=== PATIENT | male | born 1965 | race Caucasian/White ===

== ENCOUNTER 2023-11-22 08:38 | Outpatient (AMB) | payer MEDICARE, SELFPAY ==
--- NOTE | 2023-11-22 08:46 | MHC.OFFVIS ---
Vital Signs 11/22/23 08:49 Height 6 ft 3 in Weight 251 lb BMI 31.4 BP 136/80 Blood Pressure Location Rt brachial Position Sitting Respiration 16 Pulse 101 H Pulse Source Pulse Oximeter Pulse Oximetry (%) 97 Oxygen Delivery Method Room Air Intake Visit Reasons: ENP-Tremors Intake Note: Pt presents to the office for new pt consultation for tremors x 10 years , gradually worsening. Lever Miller Required: No Allergies No Known Allergies Allergy (Verified 11/22/23 08:48) Medication List - Last Reconciled 11/22/23 by Alma Olivera MD bupropion HCl XL 300 mg PO QAM divalproex 500 mg PO BID doxepin 100 mg PO BID fluoxetine 40 mg PO DAILY lurasidone 120 mg PO DAILY meclizine 25 mg PO DAILY PRN omeprazole 20 mg PO DAILY prazosin 5 mg PO BEDTIME rosuvastatin 10 mg PO DAILY topiramate 200 mg PO BID zolpidem 10 mg PO BEDTIME PRN HPI Comments Details: 58y/o Right male comes for evaluation of tremors of jose UE. He is accompanied by his son and . His hand tremors are longstanding atleast 15 years and now he has tremors in his legs and hands as well.15 years ago it was intermittent action mild tremors in his hands. In the past 2 years his hand tremors have worsened. He has trouble with fine motor co [place], holding anything, is difficult. His writing is difficult, drinking from a cup, eating with a spoon is difficult.The tremors worsens towards the end of the day , worse with stress and being fatigued. He has depression- past year it has worsened. He sees .His topiramate was decreased and started on latuda. He has been on zyprexa, lithium in the past. He has had ECT and magnetic therapy did not work. No family h/o tremors. No change in voice. No h/o significant head injury He has vertigo about 3 months - it is episodic , dizziness associated with change in head position. He is doing vestibular therapy now. He has chronic sleep issues.He had a recent in lab sleep study- 2 months ago - no evidence of sleep apnea. he was diagnosed with JUANCARLOS 12 years ago but could not use CPAP. [facility] Medical History (Updated 11/22/23 @ 10:07 by Alma Olivera MD) Insomnia Coarse tremors Drug-induced tremor Tremor Elevated blood pressure reading Morbid obesity Fatigue Edema Major depressive disorder Surgical History H/O adenoidectomy Hx of tonsillectomy H/O discectomy Social History Household Members: Spouse Housing: House Alcohol intake: never Patient Tobacco Use Status: Former Tobacco user Years Smoked: 4-5 Physical Exam Vital Signs: Last Vital Signs Pulse 101 H 11/22/23 08:49 Resp 16 11/22/23 08:49 BP 136/80 11/22/23 08:49 Pulse Ox 97 11/22/23 08:49 Oxygen Delivery Method Room Air 11/22/23 08:49 BMI result Body Mass Index 31.4 Const General: cooperative, healthy appearing and no acute distress Nutritional Appearance: obese Orientation/consciousness: patient oriented x3 Eyes Pupils: Equal, round and reactive pupils present Neuro Other: -mildly decreased facial expression and blink Jose UE postural and action tremors, low amplitude 8-12 hz Head tremors decreased range of motion in neck No tongue tremors No perioral movements Mild dsyprosody in voice General: patient oriented x3, gait normal, tone normal, moves all extremities and no focal motor deficits Cranial nerves: Yes Facial sensation intact/muscles of mastication intact, Yes Equal, round and reactive pupils present, Yes Bilaterally intact EOM present, Yes Nystagmus not present, Yes Normal facial strength present, Yes Midline tongue present, Yes Symmetric palate elevation present and Yes Ability to bilaterally elevate shoulders present Cognition (Neuro): normal cognition Gait exam (Neuro): Normal gait present Motor exam (neuro): 5/5 motor strength present throughout and Normal motor muscle tone present throughout Deep tendon reflexes (DTR's): Right triceps reflex intensity grade: 1+, Left triceps reflex intensity grade: 1+, Rt Biceps (C5, C6): 1+, Left biceps reflex intensity grade: 1+, Right brachioradialis reflex intensity grade: 1+, Left brachioradialis reflex intensity grade: 1+, Right patellar reflex intensity grade: 1+ and Left patellar reflex intensity grade: 1+ Coordination: [id number] test normal Assessment & Plan Assessment & Plan (1) Coarse tremors: Comment: multifactorial - poorly controlled mood, medication related Code(s): G25.2 - Other specified forms of tremor Category: Medical (2) Insomnia: Code(s): G47.00 - Insomnia, unspecified Category: Medical Plan No evidence of Parkinsons or tardive dyskinesia on todays exam I will trial him on gabapentin 300mg qhs for tremors and insomnia will review his sleep study results OT for hand strengthening Discussed sleep hygiene in detail Orders: Orders OT Evaluation and Treatment Today G25.2 - Other specified forms of tremor MR head/brain wo con Today G25.2 - Other specified forms of tremor Medications: New gabapentin 300 mg PO BEDTIME 30 caps 6RF Coding Level of Care Code New Pt Level 4 (59714) Diagnoses Coarse tremors G25.2 Insomnia G47.00
[2023-11-22 08:49] VITALS: BP 136/80; PULSE 101; RESP 16; O2SAT 97; BMI 31.4
== END 2023-11-22 09:45 | disposition home or self-care (01) ==
PROVIDERS: PCP Physician Assistant Medical; Visit Provider Psychiatry & Neurology Neurology
DX: G25.2 Other specified forms of tremor (principal); G47.00 Insomnia, unspecified
CPT/HCPCS: 99204

== ENCOUNTER → 2023-11-22 08:38 | Outpatient (BNVA) | payer MEDICARE, SELFPAY | PROVIDERS: PCP Physician Assistant Medical; Visit Provider Psychiatry & Neurology Neurology | DX: G25.2 Other specified forms of tremor (principal); G47.00 Insomnia, unspecified | CPT/HCPCS: 99202 ==

== ENCOUNTER → 2023-12-18 14:17 | Outpatient (BNV) | payer MEDICARE, SELFPAY | PROVIDERS: PCP Physician Assistant Medical; Visit Provider Radiology Diagnostic Radiology | DX: G25.2 Other specified forms of tremor (principal) | CPT/HCPCS: 70553 ==

== ENCOUNTER 2023-12-18 14:18 | Outpatient (REF) | payer MEDICARE, SELFPAY ==
--- NOTE | ~2023-12-18 | MR_ITS ---
EXAMINATION: MR BRAIN WITHOUT CONTRAST CLINICAL INFORMATION: Tremors. Unspecified. COMPARISON: None available. TECHNIQUE: MRI of the brain was obtained using routine sequences without contrast. FINDINGS: Submitted for interpretation on 01/20/2024. No restricted diffusion. No acute intracranial hemorrhage, mass effect, midline shift, hydrocephalus or herniation. Thomas-white matter differentiation is normal. Posterior cranial fossa contents demonstrated an extra-axial mixed isointense T1 and hypointense/hyperintense T2 FLAIR signal abnormality centered in the left cerebellopontine angle cisterns/porus acusticus and likely extending into the internal auditory canal. Flow-void signal within the main cerebral vessels is normal. Sellar/suprasellar region is normal. Craniocervical junction is intact and normal. MR/MR head/brain wo con IMPRESSION: Concerning vestibular schwannoma versus meningioma, left cerebellopontine angle cistern/porus acusticus/internal auditory canal. Recommend IV contrast enhanced MRI brain and IAC protocol. Electronically signed by: Andreas Leigh MD 01/20/2024 08:55 AM EDT
== END 2023-12-18 14:19 | disposition home or self-care (01) ==
LOC: HO.MRI 14:18
PROVIDERS: PCP Physician Assistant Medical; Visit Provider Psychiatry & Neurology Neurology
DX: G25.2 Other specified forms of tremor (principal)
CPT/HCPCS: 70551

== ENCOUNTER 2024-01-24 14:54 | Outpatient (REF) | payer MEDICARE, SELFPAY ==
--- NOTE | ~2024-01-24 | MR_ITS ---
EXAMINATION: MR BRAIN WITHOUT AND WITH CONTRAST CLINICAL INFORMATION: Dizziness and giddiness COMPARISON: None available. TECHNIQUE: Multiplanar, multisequence MRI of the brain was obtained before and after the intravenous administration of 10 mL Gadavist. Dedicated the lumbar IAC pulse series were also obtained. FINDINGS: Ill-defined signal abnormality centered in the left cerebellopontine angle cistern without definitive evidence of associated enhancement. The inner ear structures including the cochlea, vestibules, and semicircular canals exhibit preserved CSF signal intensity with no pathologic enhancement. The vestibular aqueducts are not enlarged. Cranial nerves VII and VIII complexes are normal in morphology. No acute intracranial hemorrhage or infarct. No abnormal intracranial enhancement. No edema, midline shift or hydrocephalus. No acute extra-axial fluid collections. The osseous structures are unremarkable. Hyperostosis frontalis interna. The pituitary gland, pineal gland and remaining midline structures are unremarkable. No orbital pathology. The paranasal sinuses and mastoid air cells are clear. MR/MR head/brain wo/w con IMPRESSION: Redemonstration of ill-defined signal abnormality centered in the left cerebellopontine angle cistern without definitive evidence of enhancement. This may represent a bony structure/asymmetric hypertrophy of the left temporal bone. Signal pattern does not definitively suggest vestibular schwannoma or meningioma. Recommend further evaluation with dedicated CT temporal bone. Electronically signed by: Jace Barrera MD 01/24/2024 05:57 PM KAVON
[2024-01-24] MEDS: gadobutroL 10 ML VIAL IVPUSH (15:40)
== END 2024-01-24 14:55 | disposition home or self-care (01) ==
LOC: HO.MRI 14:54
PROVIDERS: PCP Physician Assistant Medical; Visit Provider Nurse Practitioner Family
DX: R42 Dizziness and giddiness (principal); R90.89 Other abnormal findings on diagnostic imaging of central nervous system
CPT/HCPCS: 70553; A9585

== ENCOUNTER 2024-10-22 13:19 | Outpatient (AMB) | payer MEDICARE, SELFPAY ==
--- NOTE | 2024-10-22 13:24 | A.OFFVIS_ITS ---
Vital Signs 10/22/24 13:26 10/22/24 14:18 Height 6 ft 3 in Weight 348 lb BMI 43.5 BP 150/80 H 138/72 Blood Pressure Location Lt brachial Lt brachial Position Sitting Pulse 90 Pulse Source Pulse Oximeter Pulse Oximetry (%) 98 Oxygen Delivery Method Room Air Intake Visit Reasons: MRI results Intake Note: Patient presents follow up Tremor/insomnia medication. MRI in chart. Patient states Tremors have been better(lowered some medications and seemed to help). Insomina has been about the same. MRI neck done through PCP(will request report) Accompanied by: Spouse Allergies No Known Allergies Allergy (Verified 10/22/24 13:28) HPI Comments Details: 59 y/o r. handed male comes for evaluation of tremors of maranda UE. His is with him and helps with history. MRI Jan 2024 reviewed with patient. PSG in lab sleep study 2 months ago with no evidence of JUANCARLOS. Tremors improved since stopping depakote about 4 months ago a [facility] He stopped taking Zyprexa and discontinued lithium over 30 years ago. He has mild bilateral upper extremity tremors. Now tremors are mild with intentional action and intermittent. He has trouble with fine motor coordination, holding anything is difficult. His handwriting is shaky, drinking from a cup, eating with a spoon is difficult.The tremors worsens towards the end of the day especially with stress and being fatigued. He has depression, denies SI, though improved with Ketamine therapy with Dr. Lee Nelson, and , [facility]. No history of vertigo now. RLS, will shake his legs all day long. His topiramate was decreased and started on latuda, yet he doesn't notice much of a difference. He has chronic sleep issues, goes to bed at 10pm and falls asleep at midnight and wakes up at 3am with zero bathroom breaks. He was diagnosed with JUANCARLOS 12 years ago but could not use CPAP. He naps through out the day 30min, and has parsomnia, flailing and thrashing behaviors. He has had ECT and magnetic therapy did not work, with little improvement. No family h/o tremors. No change in voice. No h/o significant head injury. [facility] Medical History Insomnia Coarse tremors Drug-induced tremor Tremor Elevated blood pressure reading Morbid obesity Fatigue Edema Major depressive disorder Surgical History H/O adenoidectomy Hx of tonsillectomy H/O discectomy Social History Household Members: Spouse Housing: House Alcohol intake: never Patient Tobacco Use Status: Former Tobacco user Years Smoked: 4-5 Physical Exam Vital Signs: Last Vital Signs Pulse 90 10/22/24 13:26 BP 138/72 10/22/24 14:18 Pulse Ox 98 10/22/24 13:26 Oxygen Delivery Method Room Air 10/22/24 13:26 BMI result Body Mass Index 43.5 Const General: cooperative, healthy appearing and no acute distress Nutritional Appearance: obese Orientation/consciousness: patient oriented x3 Neuro Other: -mildly decreased facial expression and blink Maranda UE postural and action tremors, low amplitude 8-12 hz Head tremors decreased range of motion in neck No tongue tremors No perioral movements Mild dsyprosody in voice General: patient oriented x3, gait normal, tone normal, moves all extremities and no focal motor deficits Cranial nerves: Yes Facial sensation intact/muscles of mastication intact, Yes Bilaterally intact EOM present, Yes Nystagmus not present, Yes Normal facial strength present, Yes Midline tongue present, Yes Symmetric palate elevation present and Yes Ability to bilaterally elevate shoulders present Cognition (Neuro): normal cognition Gait exam (Neuro): Normal gait present Motor exam (neuro): 5/5 motor strength present throughout and Normal motor muscle tone present throughout Results Reviewed Results Reviewed: Jan 2024 MRI MR/MR head/brain wo/w con IMPRESSION: Redemonstration of ill-defined signal abnormality centered in the left cerebellopontine angle cistern without definitive evidence of enhancement. This may represent a bony structure/asymmetric hypertrophy of the left temporal bone. Signal pattern does not definitively suggest vestibular schwannoma or meningioma. Recommend further evaluation with dedicated CT temporal bone. 11/2023 MRI MR/MR head/brain wo con IMPRESSION: Concerning vestibular schwannoma versus meningioma, left cerebellopontine angle cistern/porus acusticus/internal auditory canal. Recommend IV contrast enhanced MRI brain and IAC protocol. Assessment & Plan Assessment & Plan (1) Insomnia: Comment: declines a bzra today Code(s): G47.00 - Insomnia, unspecified Category: Medical Qualifiers: Insomnia type: primary Qualified Code(s): F51.01 - Primary insomnia (2) Coarse tremors: Comment: multifactorial - poorly controlled mood, medication related Code(s): G25.2 - Other specified forms of tremor Category: Medical (3) Abnormal finding on MRI of brain: Comment: schwannoma or meningioma ? Radiologist receommends temporal ct of mandibular jaw. Code(s): R90.89 - Other abnormal findings on diagnostic imaging of central nervous system Category: Medical Plan Insomnia continue topiramate 200mg po daily, continue gabapentin 300mg po daily. Sleep dentistry for mandibular oral device. No evidence of Parkinsons or tardive dyskinesia on todays exam Continue Gabapentin 300mg qhs for tremors and insomnia will review his sleep study results OT for hand strengthening SDiscussed sleep hygiene in detail Orders: Orders CT head/brain wo IV con Today G25.2 - Other specified forms of tremor, R90.89 - Other abnormal findings on diagnostic imaging of central nervous system Referrals Dentistry Referral G47.00 - Insomnia, unspecified Patient Instructions: ct temporal - sleep dentistry Coding Level of Care Code Est Pt Level 4 (99884) Diagnoses Primary insomnia F51.01 Insomnia type: primary Coarse tremors G25.2 Abnormal finding on MRI of brain R90.89 Time Spent (min) 30
[2024-10-22 13:26] VITALS: BP 150/80; PULSE 90; O2SAT 98; BMI 43.5
--- OUTSIDE RECORDS SUMMARY | 2024-10-22 13:35 | XMS_ITS | Clinical Summary ---
Author Organization [employer] Address [address] [place] [address] [address] [place] [address] Care Team Providers Care Decorating Supervisor Name Role Phone Unavailable Primary Care Provider Unavailabl e Allergies No known active allergies Medications traZODone (Desyrel) 100 MG tablet 3 Active divalproex (Depakote ER) 500 MG 24 hr tablet divalproex ER 500 mg tablet,extended release 24 hr TAKE 2 TABLETS BY MOUTH AT BEDTIME Active buPROPion XL (Wellbutrin XL) 300 MG 24 hr tablet 3 Active FLUoxetine (PROzac) 40 MG capsule 3 Active lurasidone (Latuda) 120 MG tablet Latuda 120 mg tablet TAKE 1 TABLET BY MOUTH DAILY WITH FOOD Active prazosin (Minipress) 5 MG capsule prazosin 5 mg capsule Active zolpidem CR (Ambien CR) 12.5 MG ER tablet zolpidem ER 12.5 mg tablet,extended release,multiph ase Active topiramate (Topamax) 200 MG tablet topiramate 200 mg tablet Active doxepin (SINEquan) 100 MG capsule doxepin 100 mg capsule Active rosuvastatin (Crestor) 10 MG tablet Take 10 mg by mouth at bedtime. 4 Active gabapentin (Neurontin) 300 MG capsule 4 Active meclizine (Antivert) 12.5 MG tablet 4 Active Social History Tobacco Use Types Packs/Day Years Used Date Smoking Tobacco: Former Cigarettes Smokeless Tobacco: Never Tobacco Cessation:Counseling Given: Not Answered Sex and Gender Information Value Date Recorded Sex Assigned at Male 06/30/2022 11:11 AM EDT Legal Sex Male 2:54 PM EDT Gender Identity Male 06/30/2022 11:11 AM EDT Sexual Orientation Choose not to disclose 2022 11:11 AM EDT Last Filed Vital Signs Vital Sign Reading Time Taken Comments Blood Pressure 130/78 12/06/2023 9:10 AM EDT Pulse 72 12/06/2023 9:10 AM EDT Temperature - - Respiratory Rate - - Oxygen Saturation - - Inhaled Oxygen Concentration - - Weight - - Height - - Body Mass Index - - Plan of Treatment Health Maintenance Due Date Last Done Comments CT Colonography 1965 Colonoscopy 1965 Depression Screening 1965 FIT 1965 FOBT 1965 HIV Screening 1965 Lipid Panel 1965 SDOH Screening 1965 Sigmoidoscopy 1965 Disability Screening 1965 Alcohol/Substance Use Screening 1977 Hepatitis C Screening 07/10/1983 DTaP/Tdap/Td Vaccines (1 - Tdap) 1984 Hepatitis B Vaccines (1 of 3 - 19+ 3-dose series) 1984 Pneumococcal Vaccine: 50+ Years (1 of 1 - PCV) 07/10/2015 Zoster Vaccines (1 of 2) 07/10/2015 Dental Oral Exam 01/01/2023 07/01/2022 Dental Prophylaxis 02/06/2023 08/05/2022, 07/01/2022 Dental X-Ray: Bitewings 10/06/2024 10/06/19 24, 01/13/2023, 07/01/2022 Influenza Vaccine (#1) 2024 , 01/02/2023, 01/01/2022, Additional history exists Tobacco Screening 12/05/2024 12/06/2023 Dental X-Ray: Full Mouth 07/02/2025 07/01/2022 Colorectal Cancer Screening 01/30/2027 FIT DNA/Cologuard 01/30/2027 01/31/2024, 06/18/2020 RSV Patients and Patients Aged 60 years or older (1 - 1-dose 75+ series) 2040 COVID-19 Vaccine Completed 12/04/2023, , 01/01/2022, Additional history exists HIB Vaccines Aged Out No longer eligi ble based on patient's age to complete this topic HPV Vaccines Aged Out No longer eligi ble based on patient's age to complete this topic Hepatitis A Vaccines Aged Out No long er eligible based on patient's age to complete this topic IPV Vaccines Aged Out No longer eligi ble based on patient's age to complete this topic Meningococcal B Vaccine Aged Out No l onger eligible based on patient's age to complete this topic Meningococcal Vaccine Aged Out No bijal nate eligible based on patient's age to complete this topic RSV under 20 months Aged Out No longe r eligible based on patient's age to complete this topic Rotavirus Vaccines Aged Out No longer eligible based on patient's age to complete this topic Procedures Procedure Name Priority Date/Time Associated Diagnosis Comments BITEWING - SINGLE RADIOGRAPHIC IMAGE Routine 10/06/2023 1:00 PM EDT PROPHYLAXIS - ADULT Routine 08/05/2022 1 0:00 AM EDT INTRAORAL - COMPLETE SERIES OF RADIOGRAPHIC IMAGES Routine 07/01/2022 8:00 AM EDT Encounter for dental examination COMPREHENSIVE ORAL EVALUATION - NEW OR ESTABLISHED PATIENT Routine 07/01/2022 8:00 AM EDT Encounter for dental examination from Last 3 Months or Most Recently Relevant to Health Maintenance Insurance DENTAL - [facility]
[2024-10-22 14:18] VITALS: BP 138/72
== END 2024-10-22 14:18 | disposition home or self-care (01) ==
LOC: HO.HSMS 13:19
PROVIDERS: PCP Physician Assistant Medical; Visit Provider Physician Assistant Medical
DX: F51.01 Primary insomnia (principal); G25.2 Other specified forms of tremor; R90.89 Other abnormal findings on diagnostic imaging of central nervous system
CPT/HCPCS: 99214

== ENCOUNTER → 2024-10-22 13:19 | Outpatient (BNVA) | payer OTHER, SELFPAY | PROVIDERS: PCP Physician Assistant Medical; Visit Provider Physician Assistant Medical | DX: F51.01 Primary insomnia (principal); Z71.2 Person consulting for explanation of examination or test findings; G25.2 Other specified forms of tremor; R90.89 Other abnormal findings on diagnostic imaging of central nervous system | CPT/HCPCS: 99212 ==

== ENCOUNTER 2025-01-04 07:28 | Outpatient (REF) | payer OTHER, SELFPAY ==
--- NOTE | ~2025-01-04 | CT_ITS ---
EXAMINATION: CT HEAD WITHOUT CONTRAST CLINICAL INFORMATION: G25.2 - Other specified forms of tremor COMPARISON: Related to MRI brain dated January 24, 2024. TECHNIQUE: Contiguous axial imaging was performed from the skull base to vertex without intravenous administration of contrast. This CT examination was performed using dose optimization techniques as appropriate, variously including the following: *Automated exposure control *Adjustment of mA and/or kV according to patient size (this includes techniques or standardized protocols for targeted exams where dose is matched to indication/reason for exam; i.e. extremities or head) *Use of iterative reconstruction technique DLP: 1109 mGy-cm FINDINGS: There is diffuse hyperostosis involving the inner table of the bony calvarium and to a lesser extent the petrous bones into the porus [id number] and petroclinoid ligaments. No osteolysis. No bony erosion. No acute fracture or bony calvarium. No acute intracranial hemorrhage, mass effect, midline shift, hydrocephalus or herniation. Sellar/suprasellar region demonstrated no gross masses. Craniocervical junction demonstrates normal position of the cerebellar tonsils. No air-fluid levels in the paranasal sinuses. Polypoid mucosal thickening, maxillary sinuses. Tympanic cavities and mastoid cells are aerated. CT/CT head/brain wo IV con IMPRESSION: Consider hyperostosis frontalis interna. No acute intracranial hemorrhage. Electronically signed by: Andreas Leigh MD 01/04/2025 08:28 AM EDT
--- OUTSIDE RECORDS SUMMARY | 2025-01-04 07:31 | XMS_ITS | Clinical Summary ---
Author Organization [employer] Address [address] [place] [address] [address] [place] [address] Care Team Providers Care Aircraft Quality Control Inspector Name Role Phone Unavailable Primary Care Provider [...] Colonoscopy 1965 Depression Screening 1965 FIT 1965 HIV Screening 1965 Lipid Panel 1965 [...] Additional history exists Tobacco Screening 12/05/2024 12/06/2023 FOBT 01/30/2025 01/31/2024, 06/18/2020 Dental X-Ray: Full Mouth 07/02/2025 07/01/2022 Colorectal [...] Recently Relevant to Health Maintenance Insurance DENTAL [facility]
== END 2025-01-04 07:29 | disposition home or self-care (01) ==
LOC: HO.CT 07:28
PROVIDERS: PCP Physician Assistant Medical; Visit Provider Physician Assistant Medical
DX: G25.2 Other specified forms of tremor (principal); R90.89 Other abnormal findings on diagnostic imaging of central nervous system
CPT/HCPCS: 70450

== ENCOUNTER → 2025-01-04 07:29 | Outpatient (BNV) | payer OTHER, SELFPAY | PROVIDERS: PCP Physician Assistant Medical; Visit Provider Radiology Diagnostic Radiology | DX: G25.2 Other specified forms of tremor (principal) | CPT/HCPCS: 70450 ==

== ENCOUNTER 2025-02-01 10:24 | Outpatient (AMB) | payer MEDICARE, SELFPAY ==
[2025-02-01 10:38] VITALS: BP 122/78; PULSE 99; O2SAT 97; BMI 44.3
--- NOTE | 2025-02-01 10:38 | A.OFFVIS_ITS ---
Vital Signs 02/01/25 10:38 Height 6 ft 3 in Weight 354 lb 8 oz BMI 44.3 BP 122/78 Blood Pressure Location Lt brachial Pulse 99 Pulse Source Pulse Oximeter Pulse Oximetry (%) 97 Oxygen Delivery Method Room Air Intake Visit Reasons: 3 mnts f/u appt (LVM) Intake Note: Patient presents follow up Tremor/Insomnia. CT in chart. Patient states tremors have been better as he is starting to get off medications. Insomnia is about the same. Patient stopped taking zolpodem(did not help). Allergies No Known Allergies Allergy (Verified 02/01/25 10:40) HPI Comments Details: 59 y/o r. handed male comes for a f/u of bilateral UE tremors due to s/e of medications. 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 He has chronic sleep issues, goes to bed at 10pm and falls asleep at midnight and wakes up at 3am, sleeps 4 hours. Naps around 30min q other day, denies thrashing, punching, kicking, behavior since sleeping separately. He has mild upper extremity tremors with intentional action and intermittent, decreased since discontinuing depakote about 4 months ago per his psychiatrist. He used to take lithium and zyprexa years ago. He has trouble with fine motor coordination with weakness when holding anything. His handwriting is shaky, drinking from a cup, eating with a spoon is difficult. The tremors worsens towards the end of the day especially with stress and being fatigued. He has depression with no ambition, energy, does not sleep or eat well due to paralyzing emotional pain. For the first time in his life he denies SI, improved with Ketamine therapy working withDr. Lee Nelson, and at [facility]. He feels like a new person now, he has never experienced living without the feeling of SI. ECT and Magnetic therapy was not effective. He continues topiramate 200mg for depressive symptoms and started on lurasidone, per leon 4/7 days of week he feels symptoms have improved. Denies headaches, dizziness, vertigo, balance and gait issues. RLS, will shake his legs all day long, drums his fingers, denies neuropathy and discomfort, symptoms do not wake him up at night. Denies fh of tremors, changes in voice and h/o injury to the head. [facility] Medical History Insomnia Coarse tremors Drug-induced tremor Tremor Elevated blood pressure reading Morbid obesity Fatigue Edema Major depressive disorder Surgical History H/O adenoidectomy Hx of tonsillectomy H/O discectomy Social History Household Members: Spouse Housing: House Alcohol intake: never Patient Tobacco Use Status: Former Tobacco user Years Smoked: 4-5 Physical Exam Vital Signs: Last Vital Signs Pulse 99 02/01/25 10:38 BP 122/78 02/01/25 10:38 Pulse Ox 97 02/01/25 10:38 Oxygen Delivery Method Room Air 02/01/25 10:38 BMI result Body Mass Index 44.3 Const General: cooperative, healthy appearing and no acute distress Nutritional Appearance: obese Orientation/consciousness: patient oriented x3 Neuro Other: -mildly decreased facial expression and blink Jose UE postural and action tremors, low amplitude 8-12 hz Head tremors decreased range of motion in neck No tongue tremors No perioral movements Mild dsyprosody in voice General: patient oriented x3, gait normal, tone normal, moves all extremities and no focal motor deficits Cranial nerves: Yes Facial sensation intact/muscles of mastication intact, Yes Bilaterally intact EOM present, Yes Nystagmus not present, Yes Normal facial strength present, Yes Midline tongue present, Yes Symmetric palate elevation present and Yes Ability to bilaterally elevate shoulders present Cognition (Neuro): normal cognition Gait exam (Neuro): Normal gait present Motor exam (neuro): 5/5 motor strength present throughout and Normal motor muscle tone present throughout Psych Appearance: well kempt Speech and movement: Other speech and movement exam findings present (Psych) (dysprody- mild) Results Reviewed Results Reviewed: CT/CT head/brain wo IV con IMPRESSION: Consider hyperostosis frontalis interna. No acute intracranial hemorrhage. 01/2024 MRI reviewed with pt. Change of C-spine without high grade stenosis c3/4 mild to moderate foraminal stenosis. No abnormal signal with in the cord. Assessment & Plan Assessment & Plan (1) Insomnia: Comment: declines a bzra today- ambien ineffective, Lurasidone 120mg po daily mildly effective Code(s): G47.00 - Insomnia, unspecified Category: Medical Qualifiers: Insomnia type: primary Qualified Code(s): F51.01 - Primary insomnia (2) Coarse tremors: Comment: multifactorial - poorly controlled mood, medication related Code(s): G25.2 - Other specified forms of tremor Category: Medical (3) Abnormal finding on MRI of brain: Comment: schwannoma or meningioma ? Radiologist receommends temporal ct of mandibular jaw. Code(s): R90.89 - Other abnormal findings on diagnostic imaging of central nervous system Category: Medical (4) RBD (REM behavioral disorder): Code(s): G47.52 - REM sleep behavior disorder Category: Medical Plan RBD / Insomnia PSG? HST ? BS? not evaluated, >10 years, will send for in lab psg as pt has co-morbidities. continue topiramate 200mg po daily, continue gabapentin 300mg po daily. Sleep dentistry for mandibular oral device. Continue Gabapentin 300mg qhs for tremors and insomnia OT for hand strengthening pt declined. Orders: Orders RT PSG in-lab sleep study Today F51.01 - Primary insomnia, G47.19 - Other hypersomnia Patient Instructions: Sleep Hygiene provided: set a scheduled bedtime and wake time to help regulate the circadian rhythm and balance the release of pituitary hormones. Sleep in a dark room, temperatures below 68 degrees, and no devices n bed. Limit caffe inated products 6 hours prior to bed, and limit fluids 2-4 hours prior to bed. Gentle night yoga, diffusing essential oils, and playing soft music can be relaxing. Coding Level of Care Code Est Pt Level 4 (13798) Diagnoses Primary insomnia F51.01 Insomnia type: primary Coarse tremors G25.2 Abnormal finding on MRI of brain R90.89 RBD (REM behavioral disorder) G47.52
== END 2025-02-01 11:19 | disposition home or self-care (01) ==
LOC: HO.HSMS 10:25
PROVIDERS: PCP Physician Assistant Medical; Visit Provider Physician Assistant Medical
DX: F51.01 Primary insomnia (principal); G25.2 Other specified forms of tremor; R90.89 Other abnormal findings on diagnostic imaging of central nervous system; G47.52 REM sleep behavior disorder
CPT/HCPCS: 99214

== ENCOUNTER → 2025-02-01 10:24 | Outpatient (BNVA) | payer OTHER, SELFPAY | PROVIDERS: PCP Physician Assistant Medical; Visit Provider Physician Assistant Medical | DX: F51.01 Primary insomnia (principal); G25.2 Other specified forms of tremor; R90.89 Other abnormal findings on diagnostic imaging of central nervous system; G47.52 REM sleep behavior disorder; G47.19 Other hypersomnia | CPT/HCPCS: 99212 ==